=== PATIENT | female | born 1935 | race Caucasian/White ===

== ENCOUNTER 2017-01-23 23:19 | Observation (INO) ==
--- NOTE | 2017-01-23 23:56 | Emergency Department Note ---
Disposition Clinical Impression: Pulmonary edema, Chronic atrial fibrillation, Type 2 diabetes mellitus, Morbid obesity with BMI of 45.0-49.9, adult Disposition: Admitted As Inpatient Condition: Fair Time of Disposition: 00:31 ([facility] Obsv) SOB HPI - General Chief Complaint: ED Shortness of Breath/Dyspnea Stated Complaint: Dyspnea, worse with exertion onset 2 hours Time Seen by Provider: 01/23/17 23:35 Source: patient, EMS Mode of arrival: EMS Limitations: no limitations Nursing Notes Reviewed: Yes Vital Signs Reviewed: Yes - History of Present Illness 81-year-old to the emergency room is having increasing shortness of breath this evening denies any blurred vision double vision patient denies any fevers chills lightheadedness dizziness patient states the denies any chest pain chest pressure as distally with activity desists exertion she denies diarrhea melena hematochezia or hematemesis numbness tingling or weakness or weight loss Pt Subjective Complaint: shortness of breath Onset (ago): hour(s) (4) Context: other (History of similar episodes) Severity: severe Consistency/Duration: constant Improves with: oxygen, rest, bronchodilators Worsens with: exertion, movement Known history of: COPD, congestive heart failure, diabetes Associated symptoms: Reports: cough, wheezing, orthopnea, nausea/vomiting. Denies: sputum production, lower extremity pain, polyuria, polydipsia, parasthesias, palpitations, hemoptysis, diaphoresis, syncope, abdominal pain, sense of impending doom Treatment prior to arrival: oxygen Cough present: No Sputum production: No - Related Data Home oxygen amount: 2 liters Home Medications Medication Instructions Recorded Confirmed Acetaminophen [Tylenol] 650 mg PO Q8H PRN 12/03/15 01/24/17 Albuterol Sulfate [Proair Hfa] 2 puff IH Q8HR PRN 12/03/15 01/24/17 Aspirin 81 mg PO DAILY 12/03/15 01/24/17 Bimatoprost [Lumigan] 2.5 ml OP HS 12/03/15 01/24/17 Calcium Carbonate/Vitamin D3 1 each PO DAILY 12/03/15 01/24/17 [Oyster Shell Calcium-Vit D Tab] EPINEPHrine [Epipen JR] 0.3 mg SQ DAILY PRN 12/03/15 01/24/17 Fluticasone Propionate [Flovent 50 mcg IH BID 12/03/15 01/24/17 Diskus] Furosemide [Lasix] 40 mg PO BID 12/03/15 01/24/17 Insulin ASPART [Novolog Flexpen] 15 unit SQ TID 12/03/15 01/24/17 Insulin Glargine,Hum.rec.anlog 25 unit SQ 2200 12/03/15 01/24/17 [Lantus Solostar] Levothyroxine [Synthroid] 300 mcg PO DAILY 12/03/15 01/24/17 Nitroglycerin [Nitrostat] 0.4 mg SL Q5-10MIN PRN 12/03/15 01/24/17 Potassium Chloride 10 meq PO DAILY 12/03/15 01/24/17 Ranitidine HCl [Zantac] 300 mg PO DAILY 12/03/15 01/24/17 Rosuvastatin Calcium [Crestor] 5 mg PO DAILY 12/03/15 10/29/16 Warfarin [Coumadin] 5 mg PO TUSA 12/03/15 01/24/17 Celecoxib [Celebrex] 100 mg PO DAILY 02/29/16 01/24/17 Diltiazem HCl [Diltiazem 24Hr Cd] 240 mg PO BID 10/29/16 01/24/17 Ipratropium/Albuterol Neb [Duoneb] 3 ml IH Q6HR PRN 10/29/16 01/24/17 Metoprolol [Lopressor] 25 mg PO DAILY 10/29/16 01/24/17 Spironolactone [Aldactone] 25 mg PO 1200 10/29/16 01/24/17 Warfarin [Coumadin] 2.5 mg PO SUMOWETHFR 10/29/16 01/24/17 Previous Rx's Medication Instructions Recorded Digoxin [Lanoxin] 0.125 mg PO QOD #30 tablet 12/08/15 Allergies Allergy/AdvReac Type Severity Reaction Status Date / Time clindamycin Allergy Hives Verified 01/24/17 00:29 doxycycline Allergy Hives Verified 01/24/17 00:29 Penicillins [PCN] Allergy Hives Verified 01/24/17 00:29 pravastatin Allergy Nausea Verified 01/24/17 00:29 simvastatin Allergy Nausea Verified 01/24/17 00:29 sulfamethoxazole Allergy Rash Verified 01/24/17 00:29 [From Bactrim] trimethoprim [From Bactrim] Allergy Rash Verified 01/24/17 00:29 gabapentin AdvReac Drowsy Verified 01/24/17 00:29 lovastatin AdvReac Nausea Verified 01/24/17 00:29 All systems ED: reviewed and negative except as stated. Review of Systems: As Per HPI Constitutional: Reports: weakness, weight change (Gain). Denies: fever, chills Eyes: Denies: eye pain, eye discharge ENT ED: Denies: ear pain Cardiovascular: Reports: dyspnea on exertion, orthopnea. Denies: chest pain, palpitations, syncope Respiratory: Denies: cough, dyspnea, wheezes Gastrointestinal: Denies: abdominal pain, nausea, vomiting Genitourinary: Denies: urgency, dysuria, frequency Musculoskeletal: Denies: back pain, neck pain Integumentary: Denies: rash, abrasion Neurological: Reports: weakness. Denies: headache Psychiatric: Denies: anxiety, depression Endocrine: Denies: fatigue Hematological/Lymphatic: Denies: easy bleeding Allergic/Immunologic: Denies: facial swelling Past Medical History - Past Medical History Attestation: Yes The following information was validated with the patient. Source: patient, old records reviewed, obtained from family, nursing notes reviewed Medical history: Reports: arthritis, atrial fibrillation, cancer, CHF, COPD, diabetes, GERD, glaucoma, hyperlipidemia, hypertension, malignancy, osteoporosis , thyroid disease, valvular heart disease, other Surgical history: Reports: cancer surgery, cataract, cholecystectomy, hysterectomy, orthopedic, other, pacemaker/AICD, sinus surgery, BELLA/BSO, other Psychiatric history: Reports: no psych history TRANSVERSE ABDOMINAL MUSCLE SURGEON history: Reports: no TRANSVERSE ABDOMINAL MUSCLE SURGEON history - Social History Smoking Status: Never smoker Smokeless Tobacco Status: No Alcohol use: Reports: none Drug use: Reports: none Physical Exam - General Limitations: no limitations General appearance: alert, in no apparent distress, anxious, obese - Head Head exam: atraumatic, normocephalic, normal inspection - Eye Eye exam: Present: normal appearance, PERRL, EOMI - ENT ENT exam: normal exam, normal oropharynx, mucous membranes moist, normal external ear exam - Neck Neck exam: Present: normal inspection, full ROM, trachea midline - Chest Chest inspection: Present: normal inspection, symmetric chest wall rise - Respiratory Respiratory exam: Present: normal lung sounds bilaterally - Cardiovascular Cardiovascular exam: Present: regular rate, normal rhythm, normal heart sounds - Abdominal Exam Abdominal exam: Present: soft, Non-Tender, normal bowel sounds. Absent: mass, pulsatile mass - Expanded Upper Extremity Exam Shoulder exam: Present: normal inspection, full ROM Arm exam: Present: normal inspection, full ROM Elbow exam: Present: normal inspection, full ROM Forearm/Wrist exam: Present: normal inspection, full ROM Hand exam: Present: normal inspection, full ROM Vascular exam: Normal: capillary refill, radial pulse - Expanded Lower Extremity Exam Hip/Pelvis exam: Present: normal inspection, full ROM Upper leg exam: Present: normal inspection, full ROM, swelling (Perry bilateral ) Knee exam: Present: normal inspection, full ROM, swelling Lower leg exam: Present: normal inspection, full ROM, swelling. Absent: Homans ' sign Ankle exam: Present: normal inspection, full ROM, swelling Foot/toe exam: Present: normal inspection, full ROM, swelling Neurovascular/Tendon exam: Present: normal capillary refill, normal fine/light touch. Absent: motor deficit, sensory deficit, tendon deficit Gait: not tested/not observed - Back Exam Back exam: Present: normal inspection, full ROM. Absent: muscle spasm - Neurological Exam Neurological exam: Present: alert, oriented X3, CN II-XII intact - Psychiatric Psychiatric exam: Present: normal affect, normal mood - Skin Skin exam: Present: warm, dry, intact, normal color Course Course Narrative: Patient is seen and examined she is noted to be shortness of breath but she has no wheezing no rales no rhonchi noted patient was observed resting comfortably IV established awaiting chest x-ray and laboratory results Vital Signs Temperature 98.0 F 01/23/17 23:25 Pulse Rate 82 01/23/17 23:25 Respiratory Rate 18 01/23/17 23:25 Blood Pressure 131/62 01/23/17 23:25 O2 Sat by Pulse Oximetry 94 01/23/17 23:25 Temperature 97.6 F 01/24/17 02:10 Pulse Rate 78 01/24/17 02:10 Respiratory Rate 18 01/24/17 02:10 Blood Pressure 134/67 01/24/17 02:10 O2 Sat by Pulse Oximetry 91 01/24/17 02:10 Oxygen Delivery Oxygen Delivery Nasal Cannula Shortness of Breath/Dyspnea - Differential Diagnosis Likely: acute exacerbation of chronic obstructive airways disease, congestive heart failure - Medical Records Medical records reviewed: Yes I reviewed the patient's medical records. - Lab Data Lab results reviewed: Yes I reviewed the patient's lab results. Result diagrams: 01/23/17 23:48 01/23/17 23:48 Lab Results 01/23/17 01/23/17 01/23/17 Range/Units 23:48 23:48 23:48 WBC 9.1 (4.3-11.1) K/mcL RBC 3.42 L (3.82-4.97) M/mcL Hgb 11.3 L (11.5-15.4) g/dL Hct 35.9 (35.3-44.9) % MCV 105.0 H (83.0-100.0) fL MCH 33.0 (28.0-33.3) pg MCHC 31.5 L (31.6-35.5) g/dL RDW 15.4 H (11.5-14.5) % Plt Count 283 (140-400) K/mcL MPV 9.2 L (9.4-12.4) fL Immature Gran % 0.4 (0-4) % Seg Neutrophils % 68.3 % Lymphocytes % 18.7 % Monocytes % 6.7 % Eosinophils % 4.7 % Basophils % 1.2 % Neutrophils # 6.2 (1.6-8.9) K/mcL Lymphocytes # 1.7 (0.6-4.6) K/mcL Monocytes # 0.6 (0.0-1.3) K/mcL Eosinophils # 0.4 (0.0-0.6) K/mcL Basophils # 0.1 (0.0-0.2) K/mcL PT 37.6 H (9.4-12.1) Seconds INR 3.4 APTT 41.7 H (26.0-36.0) Seconds Sodium 140 (136-145) mEq/L Potassium 5.0 H (3.5-4.5) mEq/L Chloride 100 (98-109) mEq/L Carbon Dioxide 25 (19-29) mEq/L BUN 15 (7-20) mg/dL Creatinine 1.02 (0.57-1.11) mg/dL Est GFR ( Amer) > 60 (> 60) Est GFR (Non-Af Amer) 52 L (> 60) BUN/Creatinine Ratio 15 (6-26) Glucose 172 H (70-99) mg/dL Calculated Osmolality 295 (280-300) Calcium 8.9 (8.6-10.8) mg/dL Troponin I (0-0.03) ng/mL B-Natriuretic Peptide (0-100) pg/mL Digoxin (0.8-2.0) ng/mL 01/23/17 01/23/17 01/23/17 Range/Units 23:48 23:48 23:48 WBC (4.3-11.1) K/mcL RBC (3.82-4.97) M/mcL Hgb (11.5-15.4) g/dL Hct (35.3-44.9) % MCV (83.0-100.0) fL MCH (28.0-33.3) pg MCHC (31.6-35.5) g/dL RDW (11.5-14.5) % Plt Count (140-400) K/mcL MPV (9.4-12.4) fL Immature Gran % (0-4) % Seg Neutrophils % % Lymphocytes % % Monocytes % % Eosinophils % % Basophils % % Neutrophils # (1.6-8.9) K/mcL Lymphocytes # (0.6-4.6) K/mcL Monocytes # (0.0-1.3) K/mcL Eosinophils # (0.0-0.6) K/mcL Basophils # (0.0-0.2) K/mcL PT (9.4-12.1) Seconds INR APTT (26.0-36.0) Seconds Sodium (136-145) mEq/L Potassium (3.5-4.5) mEq/L Chloride (98-109) mEq/L Carbon Dioxide (19-29) mEq/L BUN (7-20) mg/dL Creatinine (0.57-1.11) mg/dL Est GFR ( Amer) (> 60) Est GFR (Non-Af Amer) (> 60) BUN/Creatinine Ratio (6-26) Glucose (70-99) mg/dL Calculated Osmolality (280-300) Calcium (8.6-10.8) mg/dL Troponin I 0.03 (0-0.03) ng/mL B-Natriuretic Peptide 125 H (0-100) pg/mL Digoxin 0.4 L (0.8-2.0) ng/mL - Radiology Data Radiology results reviewed: Yes I reviewed the patient's radiology results. - EKG Data EKG attestation: Yes I reviewed and interpreted this EKG. EKG results narrative: Electronically paced rhythm rate 68 QRS 153 QT 436 axis -66 Critical Care Time Critical Care Time: No
[2017-01-23 23:57] LABS: Basophils # 0.1 K/mcL (0.0-0.2); Basophils % 1.2 %; Eosinophils # 0.4 K/mcL (0.0-0.6); Eosinophils % 4.7 %; Hematocrit 35.9 % (35.3-44.9); Hemoglobin 11.3 g/dL (11.5-15.4); Immature Granulocytes % 0.4 % (0-4); Lymphocytes # 1.7 K/mcL (0.6-4.6); Lymphocytes % 18.7 %; Mean Corpuscular HGB Conc 31.5 g/dL (31.6-35.5); Mean Platelet Volume 9.2 fL (9.4-12.4); Monocytes # 0.6 K/mcL (0.0-1.3); Monocytes % 6.7 %; Neutrophils # 6.2 K/mcL (1.6-8.9); Platelet Count 283 K/mcL (140-400); Red Blood Count 3.42 M/mcL (3.82-4.97); Red Cell Distribution Width 15.4 % (11.5-14.5); Segmented Neutrophils % 68.3 %
[2017-01-24 00:05] LABS: INR 3.4; Prothrombin Time 37.6 Seconds (9.4-12.1)
[2017-01-24 00:08] LABS: Activated Partial Thrombo Time 41.7 Seconds (26.0-36.0)
[2017-01-24] MEDS ORDERED: Bumetanide 1 MG/4 ML VIAL IVP ONE (00:11)
[2017-01-24 00:15] LABS: BUN/Creatinine Ratio 15 (6-26); Blood Urea Nitrogen 15 mg/dL (7-20); Calcium 8.9 mg/dL (8.6-10.8); Carbon Dioxide 25 mEq/L (19-29); Chloride 100 mEq/L (98-109); Glucose 172 mg/dL (70-99); Osmolality,Calculated 295 (280-300); Sodium 140 mEq/L (136-145); eGFR For African Americans > 60 (> 60); eGFR For Non-African Americans 52 (> 60)
[2017-01-24] MEDS ORDERED: *HR* Digoxin 0.125 MG TABLET PO SCH ×3 (01:29→09:00)
[2017-01-24] MEDS ORDERED: Naloxone 0.4 MG/ML INJ IVP PRN (01:29)
[2017-01-24] MEDS ORDERED: Nitroglycerin 0.4 MG TAB.SUBL SL PRN (01:29)
[2017-01-24] MEDS ORDERED: Dextrose Gel 15 GM PO PRN ×2 (01:29)
[2017-01-24] MEDS ORDERED: D5% in Water 1,000 ML IVC PRN (01:29)
[2017-01-24] MEDS ORDERED: Ondansetron ODT 4 MG TAB.RAPDIS SL PRN (01:29)
[2017-01-24] MEDS ORDERED: Ipratropium/Albuterol Neb 3 ML IH PRN (01:29)
[2017-01-24] MEDS ORDERED: *HR* Dextrose 50 % in Water (Syg) 50 ML SYRINGE IVP PRN (01:29)
[2017-01-24] MEDS: Insulin LISPRO 300 UNITS/3 ML VIAL SQ SCH ×3 (07:51→16:45)
[2017-01-24] MEDS ORDERED: Bumetanide 1 MG/4 ML VIAL IVP SCH (08:00)
[2017-01-24] MEDS ORDERED: Celecoxib 100 MG CAPSULE PO SCH (09:00)
[2017-01-24] MEDS ORDERED: NON-FORMULARY MEDICATION 1 EACH EACH (Insulin Aspart [Novolog Flexpen] 15 UNIT) SQ SCH (09:00)
[2017-01-24] MEDS: Diltiazem CD (24hr) 240 MG CAPSULE PO SCH ×2 (10:09→20:59)
[2017-01-24] MEDS: Furosemide 40 MG TABLET PO SCH ×2 (10:09→16:13)
[2017-01-24] MEDS: Famotidine 20 MG TABLET PO SCH (10:09)
[2017-01-24] MEDS: Aspirin 81 MG TAB.CHEW PO SCH (10:09)
[2017-01-24] MEDS: CALCIUM CARBONATE PO SCH (10:23)
[2017-01-24] MEDS: VITAMIN D3 PO SCH (10:23)
[2017-01-24] MEDS: Beclomethasone 80mcg MDI IH SCH ×2 (10:30→21:25)
[2017-01-24] MEDS: Acetaminophen 325 MG TABLET PO PRN ×2 (11:49→21:32)
[2017-01-24] MEDS ORDERED: Spironolactone 25 MG TABLET PO SCH (12:00)
--- NOTE | 2017-01-24 14:57 | Internal Med History&Physical ---
Date of Encounter: 01/24/17 Time of Encounter: 14:30 Assessment and Plan (1) Diastolic CHF, chronic Current visit: No Status: Chronic She has been started on higher dose Lasix. Aldactone will be continued along with Lopressor and Lanoxin. (2) Chronic atrial fibrillation Current visit: Yes Status: Chronic Continue Coumadin, Cardizem, Lanoxin, and Lopressor. (3) Macrocytic anemia Current visit: Yes Status: Acute TSH was normal at 3.306 in 08/13/2016. Will order anemia testing in a.m. Suspect likely due to chronic liver disease. (4) CKD (chronic kidney disease) stage 3, GFR 30-59 ml/min Current visit: Yes Status: Acute (5) Hyperkalemia Current visit: Yes Status: Acute Will discontinue supplemental potassium. (6) Hyperuricemia Current visit: Yes Status: Acute Uric acid level was 7.3 on 07/31/2015. We will recheck in a.m. (7) Low vitamin D level Current visit: Yes Status: Acute Vitamin D level was 11 on 08/13/2016. We will recheck in a.m. Internal Medicine - H&P: HPI Chief complaint: Dyspnea Admitted From: Home Plans for Post Hospital Care: Home History of present illness: Ms. Nowak is a 81 year old female who came to emergency room stating she had onset of dyspnea a few hours earlier while at leisure at home. She denies chest pain or cough associated. She took a nebulizer treatment without improvement. The squad was called and she was brought to emergency room. She was evaluated and admitted to [facility] floor for ongoing care needs. She states her dyspnea has improved and she feels back to her baseline now. She claims a diagnosis of heart failure. Echocardiogram done October 2015 shows LVEF of 55% with indeterminate diastolic function due to atrial fibrillation. There was reported moderately dilated atria without measurements recorded. There was [id number] TR. She denies hypertension IA DVT or pulmonary embolus. She denies stress test or heart cath being done. She had a diagnosis of SSS and had pacemaker placement October 2014. Past Med Surg Social Fam HX - Past Medical History Medical history: arthritis, atrial fibrillation, cancer, CHF, COPD, diabetes, GERD, glaucoma, hyperlipidemia, hypertension, malignancy, osteoporosis, thyroid disease, valvular heart disease, other Psychiatric history: no psych history - Past Surgical History Surgical History: cancer surgery, cataract, cholecystectomy, hysterectomy, orthopedic, other, pacemaker/AICD, sinus surgery, BELLA/BSO, other - Social History Smoking Status: Never smoker Smokeless Tobacco Status: No Alcohol use: none Drug use: none - Family History Mother Hx Family Cardiac Disorders: Yes Hx Family Respiratory Disorders: Yes Internal Medicine - H&P: Meds Acetaminophen [Tylenol] 650 mg PO Q8H PRN 12/03/15 [History] Albuterol Sulfate [Proair Hfa] 2 puff IH Q8HR PRN 12/03/15 [History] Aspirin 81 mg PO DAILY 12/03/15 [History] Bimatoprost [Lumigan] 2.5 ml OP HS 12/03/15 [History] Calcium Carbonate/Vitamin D3 [Oyster Shell Calcium-Vit D Tab] 1 each PO DAILY [History] EPINEPHrine [Epipen JR] 0.3 mg SQ DAILY PRN 12/03/15 [History] Fluticasone Propionate [Flovent Diskus] 50 mcg IH BID 12/03/15 [History] Furosemide [Lasix] 40 mg PO BID 12/03/15 [History] Insulin ASPART [Novolog Flexpen] 15 unit SQ TID 12/03/15 [History] Insulin Glargine,Hum.rec.anlog [Lantus Solostar] 25 unit SQ 2200 12/03/15 [ History] Levothyroxine [Synthroid] 300 mcg PO DAILY 12/03/15 [History] Nitroglycerin [Nitrostat] 0.4 mg SL Q5-10MIN PRN 12/03/15 [History] Potassium Chloride 10 meq PO DAILY 12/03/15 [History] Ranitidine HCl [Zantac] 300 mg PO DAILY 12/03/15 [History] Warfarin [Coumadin] 5 mg PO TUSA 12/03/15 [History] Digoxin [Lanoxin] 0.125 mg PO QOD #30 tablet 12/08/15 [Rx] Celecoxib [Celebrex] 100 mg PO DAILY 02/29/16 [History] Diltiazem HCl [Diltiazem 24Hr Cd] 240 mg PO BID 10/29/16 [History] Ipratropium/Albuterol Neb [Duoneb] 3 ml IH Q6HR PRN 10/29/16 [History] Metoprolol [Lopressor] 25 mg PO DAILY 10/29/16 [History] Spironolactone [Aldactone] 25 mg PO 1200 10/29/16 [History] Warfarin [Coumadin] 2.5 mg PO SUMOWETHFR 10/29/16 [History] 3 Allergy/AdvReac Type Severity Reaction Status Date / Time clindamycin Allergy Hives Verified 01/24/17 00:29 doxycycline Allergy Hives Verified 01/24/17 00:29 Penicillins [PCN] Allergy Hives Verified 01/24/17 00:29 pravastatin Allergy Nausea Verified 01/24/17 00:29 simvastatin Allergy Nausea Verified 01/24/17 00:29 sulfamethoxazole Allergy Rash Verified 01/24/17 00:29 [From Bactrim] trimethoprim [From Bactrim] Allergy Rash Verified 01/24/17 00:29 gabapentin AdvReac Drowsy Verified 01/24/17 00:29 lovastatin AdvReac Nausea Verified 01/24/17 00:29 All Systems PM: A 10-system review of systems was performed and is negative for pertinent findings except as documented above in the HPI. Review of systems: Gen.: Her weight has been stable the past few months Cardiovascular: As per history of present illness Respiratory: She is a lifelong nonsmoker but states she has asthma. She has been diagnosed with hypoxemia and uses oxygen 15/11. She has had negative ZOE workup. GI: She is a lifelong nondrinker but has been diagnosed with cirrhosis. She has had cholecystectomy. She has occasional GERD symptoms. She denies disorders of exocrine pancreas. : She had uterine cancer with curative BELLA/BSO several years ago. She was unaware she has chronic kidney disease stage 2-3 from review of past labs. Neurologic: She denies large distribution strokes or seizures. Endocrine: She was diagnosed DM 2 approximately 2011. She has hypothyroidism and history of hyperlipidemia but was taken off statin drugs recently. Hematology/oncology: She had uterine cancer with curative surgery as per above several years ago. She has anemia but denies other internal malignancies. Psychiatric: She denies anxiety depression or other mental health issues. [place] skeletal: She has DJD but denies gout or other bone joint or muscle disorders. - Constitutional Vitals: Temp Pulse Resp BP Pulse Ox 98.0 F 84 18 107/57 93 01/24/17 10:39 01/24/17 10:39 01/24/17 10:39 01/24/17 10:39 01/24/17 10:39 Exam: Gen.: She is a well-developed overweight female sitting in a chair who appears in no acute distress. HEENT: Head is atraumatic and normocephalic. Eyes: EOMI. There is no scleral icterus. Mouth: Mucosa is moist. Neck: Supple and nontender. There is no thyromegaly or adenopathy noted. Heart: Regular (pacer) without murmurs or gallops. Lungs: No wheezes or crackles are heard. Abdomen: Soft and nontender. No masses or guarding are noted. Extremities: She has trace edema of the dorsum of the feet and lower anterior shins bilaterally. Dorsalis pedis and posttibial pulses are not palpable. Her feet are warm to touch. Neurologic: Mental status: She is talkative and a good historian. Cranial nerves: Smile is symmetric. Forehead wrinkles bilaterally. Tongue protrudes midline. EOMI. Motor: There is no pronator drift. Cerebellar: Finger to nose is intact bilaterally. Skin: Warm and dry Internal Med - H&P Results - Labs CBC & Chem 7: 01/23/17 23:48 01/23/17 23:48
[2017-01-24] MEDS: Isosorbide MONOnitrate (24 HR) 30 MG TAB.ER.24H PO SCH (16:14)
--- NOTE | 2017-01-24 17:05 | Electrocardiograph Report ---
[address] [address] Test Date: 2017-01-23 Pat Name: Nika Nowak Department: [id number] Room: [facility] Gender: F Construction Administrator: Kolby : 1935 Requested By: Farzaneh Mariscal Order Number: [id number] Reading MD: Tonya Aguirre Measurements Intervals [place] Rate: 68 P: SD: 0 QRS: -66 QRSD: 153 T: 110 QT: 436 QTc: 454 Interpretive Statements ELECTRONIC VENTRICULAR PACEMAKER ABNORMAL RHYTHM ECG Electronically Signed On 01-24-2017 17:03:29 EDT by Tonya Aguirre
[2017-01-24] MEDS ORDERED: Insulin DETEMIR 100 UNIT/ML X5UNITS SQ SCH (21:00)
[2017-01-24] MEDS ORDERED: BIMATOPROST OP SCH (21:00)
[2017-01-25 06:10] LABS: Basophils # 0.1 K/mcL (0.0-0.2); Basophils % 1.4 %; Eosinophils # 0.6 K/mcL (0.0-0.6); Eosinophils % 7.5 %; Hematocrit 33.1 % (35.3-44.9); Hemoglobin 10.8 g/dL (11.5-15.4); Immature Granulocytes % 0.8 % (0-4); Lymphocytes # 1.7 K/mcL (0.6-4.6); Mean Corpuscular HGB Conc 32.6 g/dL (31.6-35.5); Mean Corpuscular Hemoglobin 33.5 pg (28.0-33.3); Mean Corpuscular Volume 102.8 fL (83.0-100.0); Mean Platelet Volume 9.3 fL (9.4-12.4); Monocytes # 0.6 K/mcL (0.0-1.3); Monocytes % 7.2 %; Neutrophils # 4.7 K/mcL (1.6-8.9); Platelet Count 267 K/mcL (140-400); Red Blood Count 3.22 M/mcL (3.82-4.97); Red Cell Distribution Width 15.2 % (11.5-14.5); Segmented Neutrophils % 61.1 %
[2017-01-25 06:25] LABS: BUN/Creatinine Ratio 15 (6-26); Blood Urea Nitrogen 13 mg/dL (7-20); Calcium 8.9 mg/dL (8.6-10.8); Carbon Dioxide 27 mEq/L (19-29); Chloride 101 mEq/L (98-109); Glucose 133 mg/dL (70-99); Osmolality,Calculated 296 (280-300); Potassium 3.7 mEq/L (3.5-4.5); Sodium 142 mEq/L (136-145); eGFR For African Americans > 60 (> 60); eGFR For Non-African Americans > 60 (> 60)
[2017-01-25 06:26] VITALS: BP 179/61
[2017-01-25 06:27] LABS: Magnesium 2.3 mg/dL (1.6-2.6); Uric Acid 7.9 mg/dL (2.6-6.0)
[2017-01-25] MEDS: Diltiazem CD (24hr) 240 MG CAPSULE PO SCH (07:33)
[2017-01-25] MEDS: Acetaminophen 325 MG TABLET PO PRN (07:33)
[2017-01-25] MEDS: Isosorbide MONOnitrate (24 HR) 30 MG TAB.ER.24H PO SCH (07:33)
[2017-01-25] MEDS: Famotidine 20 MG TABLET PO SCH (07:33)
[2017-01-25] MEDS: Furosemide 40 MG TABLET PO SCH (07:33)
[2017-01-25] MEDS: Insulin LISPRO 300 UNITS/3 ML VIAL SQ SCH (07:34)
[2017-01-25] MEDS: Aspirin 81 MG TAB.CHEW PO SCH (07:34)
[2017-01-25] MEDS: CALCIUM CARBONATE PO SCH (08:11)
[2017-01-25] MEDS: VITAMIN D3 PO SCH (08:11)
--- NOTE | 2017-01-25 09:53 | Discharge Summary ---
Date of Encounter: 01/25/17 Time of Encounter: 09:45 - Discharge Diagnosis (1) Diastolic CHF, chronic Priority: Primary Status: Chronic (2) Chronic atrial fibrillation Priority: Secondary Status: Chronic (3) Macrocytic anemia Priority: Secondary Status: Acute (4) CKD (chronic kidney disease) stage 3, GFR 30-59 ml/min Priority: Secondary Status: Acute (5) Hyperkalemia Priority: Secondary Status: Acute (6) Hyperuricemia Priority: Secondary Status: Acute (7) Low vitamin D level Priority: Secondary Status: Acute - Discharge Medications Prescriptions: Isosorbide MONOnitrate (24 HR) [Imdur] 30 mg PO DAILY #30 tab.er.24h Home Medications: Acetaminophen [Tylenol] 650 mg PO Q8H PRN 12/03/15 [History] Albuterol Sulfate [Proair Hfa] 2 puff IH Q8HR PRN 12/03/15 [History] Aspirin 81 mg PO DAILY 12/03/15 [History] Bimatoprost [Lumigan] 2.5 ml OP HS 12/03/15 [History] Calcium Carbonate/Vitamin D3 [Oyster Shell Calcium-Vit D Tab] 1 each PO DAILY [History] EPINEPHrine [Epipen JR] 0.3 mg SQ DAILY PRN 12/03/15 [History] Fluticasone Propionate [Flovent Diskus] 50 mcg IH BID 12/03/15 [History] Furosemide [Lasix] 40 mg PO BID 12/03/15 [History] Insulin ASPART [Novolog Flexpen] 15 unit SQ TID 12/03/15 [History] Insulin Glargine,Hum.rec.anlog [Lantus Solostar] 25 unit SQ 2200 12/03/15 [ History] Levothyroxine [Synthroid] 300 mcg PO DAILY 12/03/15 [History] Nitroglycerin [Nitrostat] 0.4 mg SL Q5-10MIN PRN 12/03/15 [History] Potassium Chloride 10 meq PO DAILY 12/03/15 [History] Ranitidine HCl [Zantac] 300 mg PO DAILY 12/03/15 [History] Warfarin [Coumadin] 5 mg PO TUSA 12/03/15 [History] Digoxin [Lanoxin] 0.125 mg PO QOD #30 tablet 08/15/16 [Rx] Diltiazem HCl [Diltiazem 24Hr Cd] 240 mg PO BID 10/29/16 [History] Ipratropium/Albuterol Neb [Duoneb] 3 ml IH Q6HR PRN 10/29/16 [History] Metoprolol [Lopressor] 25 mg PO DAILY 10/29/16 [History] Spironolactone [Aldactone] 25 mg PO 1200 10/29/16 [History] Warfarin [Coumadin] 2.5 mg PO SUMOWETHFR 10/29/16 [History] Isosorbide MONOnitrate (24 HR) [Imdur] 30 mg PO DAILY #30 tab.er.24h 01/25/17 [ Rx] Allergies/Adverse Reactions: 3 Allergy/AdvReac Type Severity Reaction Status Date / Time clindamycin Allergy Hives Verified 01/24/17 00:29 doxycycline Allergy Hives Verified 01/24/17 00:29 Penicillins [PCN] Allergy Hives Verified 01/24/17 00:29 pravastatin Allergy Nausea Verified 01/24/17 00:29 simvastatin Allergy Nausea Verified 01/24/17 00:29 sulfamethoxazole Allergy Rash Verified 01/24/17 00:29 [From Bactrim] trimethoprim [From Bactrim] Allergy Rash Verified 01/24/17 00:29 gabapentin AdvReac Drowsy Verified 01/24/17 00:29 lovastatin AdvReac Nausea Verified 01/24/17 00:29 Date of admission: 01/24/17 00:53 Primary care physician: Cholo Hwang DO - Patient Status Disposition: Home, Self-Care Condition: Fair Functional capacity at discharge: uses cane/walker Overall status at discharge: patient is progressing back to baseline - Discharge Instructions Follow Up With: Cholo Hwang DO [Primary Care Provider] - 1 week - Diet and Activity Activity: resume usual activities as tolerated, wear oxygen at night Diet: advance to your usual diet Hospital course: Ms. Nowak is a 81 year old female who came to emergency room stating she had onset of dyspnea a few hours earlier while at leisure at home. She denies chest pain or cough associated. She took a nebulizer treatment without improvement. The squad was called and she was brought to emergency room. She was evaluated and admitted to [facility] for ongoing care needs. Initial orders were written by the emergency room physician. I saw her on January 24 and performed a history and physical. She was given Lasix 80 mg twice a day. Aldactone, Lopressor, Lanoxin were continued. I started her on isosorbide. By the following day she felt back to her baseline. She wished to be discharged home which I felt was reasonable. She will resume previous dose Lasix for now but her PCP/seo marketing specialist can increase the dose as needed should symptoms recur. She had occasional sensation of RVR. I told her her PCP/seo marketing specialist could increase her Lanoxin dose if symptoms persist since her level returned low at 0.4. Celebrex was discontinued and IV fluids given. Her renal function improved with the BUN and creatinine being 13 and 0.9 respectively on the day of discharge with estimated GFR greater than 60. She will remain off Celebrex at discharge and use Tylenol for pain. Uric acid returned slightly elevated at 7.9. She did not have symptoms of gout so no medication was prescribed. Anemia testing and vitamin D level were ordered with results pending at time of discharge. She will be discharged home and follow with Dr. Hwang within 1 week. - Time Spent with Patient Total time spent providing and/or coordinating discharge services: - Constitutional Vitals: Temp Pulse Resp BP Pulse Ox 97.6 F 78 17 179/61 93 01/25/17 06:24 01/25/17 06:24 01/25/17 06:24 01/25/17 06:24 01/25/17 06:24
[2017-01-25] MEDS ORDERED: *HR* Warfarin 5 MG TABLET PO SCH (18:00)
[2017-01-25] MEDS ORDERED: Latanoprost 2.5 ML BOTTLE BOTH EYES SCH (21:00)
[2017-01-25] MEDS ORDERED: Insulin DETEMIR 100 UNIT/ML X5UNITS SQ SCH (21:00)
[2017-01-26] MEDS ORDERED: *HR* Warfarin 5 MG TABLET PO SCH (18:00)
== END 2017-01-25 10:05 | disposition home or self-care (01) ==
LOC: INPPIK 23:19 → EMEROOPIK 23:19 → INPPIK 01-24 01:25
PROVIDERS: ADMIT Internal Medicine; ATTEND Internal Medicine

== ENCOUNTER 2018-03-19 15:25 | Observation (INO) ==
--- NOTE | 2018-03-19 15:53 | Emergency Department Note ---
Disposition Clinical Impression: Acute exacerbation of chronic obstructive airways disease Congestive heart failure Qualifiers: Heart failure type: unspecified Heart failure chronicity: acute on chronic Qualified Code(s): I50.9 - Heart failure, unspecified Disposition: Admitted As Inpatient Condition: Fair Referrals: NONE,PCP [Primary Care Provider] - Forms: ED Satisfaction Letter SOB HPI - General Chief Complaint: ED Shortness of Breath/Dyspnea Stated Complaint: shortness of breath, chest pain Time Seen by Provider: 03/19/18 15:40 Source: patient, family Mode of arrival: EMS Limitations: no limitations Nursing Notes Reviewed: Yes Vital Signs Reviewed: Yes - History of Present Illness Agent presents to the ED via EMS complaining of chest pain and shortness of br eath. Symptoms began yesterday evening. Her chest pain is intermittent and sharp but only a 1-2 out of 10 when it occurs. She has no pain at this moment. The pain is generalized however throughout her chest. She reports some shortness of breath that is worse with exertion. He did get better after she did a breathing treatment at home. She is also had intermittent dry cough. She reports chronic rhinorrhea that has not changed. No sore throat or sneezing. Her sister reports that she thinks her legs are more swollen than usual. Patient reports chronic nausea for years but no vomiting or diarrhea. Her sister states her PCP changed her from ranitidine to esomeprazole recently. She reports some subjective fever and chills yesterday evening as well. No urinary symptoms. No rash. No recent travel or sick contacts. Patient did recently have cataract surgery but reports no complications from this. Patient has multiple chronic medical problems including COPD, CHF, diabetes, hypertension, pacemaker and having had a blood clot in her heart years ago. She is on Coumadin for this. She also has remote history of uterine cancer. - Related Data Home Medications Medication Instructions Recorded Confirmed Acetaminophen [Tylenol] 650 mg PO Q8H PRN 12/03/15 03/19/18 Albuterol Sulfate [Proair Hfa] 2 puff IH Q8HR PRN 12/03/15 03/19/18 Aspirin 81 mg PO DAILY 12/03/15 03/19/18 Bimatoprost [Lumigan] 2.5 ml OP HS 12/03/15 03/19/18 Calcium Carbonate/Vitamin D3 1 each PO DAILY 12/03/15 03/19/18 [Oyster Shell Calcium-Vit D Tab] EPINEPHrine [Epipen JR] 0.3 mg SQ DAILY PRN 12/03/15 03/19/18 Fluticasone Propionate [Flovent 50 mcg IH BID 12/03/15 03/19/18 Diskus] Insulin ASPART [Novolog Flexpen] 15 unit SQ TIDWM 12/03/15 03/19/18 Insulin Glargine,Hum.rec.anlog 25 unit SQ HS 12/03/15 03/19/18 [Lantus Solostar] Levothyroxine [Synthroid] 300 mcg PO DAILY 12/03/15 03/19/18 Nitroglycerin [Nitrostat] 0.4 mg SL Q5-10MIN PRN 12/03/15 03/19/18 Potassium Chloride 10 meq PO DAILY 12/03/15 03/19/18 Ranitidine HCl [Zantac] 300 mg PO DAILY 12/03/15 03/19/18 Diltiazem HCl [Diltiazem 24Hr Cd] 240 mg PO BID 10/29/16 03/19/18 Ipratropium/Albuterol Neb [Duoneb] 3 ml IH Q6HR PRN 10/29/16 03/19/18 Spironolactone [Aldactone] 25 mg PO 1200 10/29/16 03/19/18 Cyanocobalamin (Vitamin B-12) 1,000 mcg PO DAILY 06/09/17 03/19/18 [Vitamin B12] Warfarin [Coumadin] 5 mg PO DAILY 06/09/17 03/19/18 Previous Rx's Medication Instructions Recorded Digoxin [Lanoxin] 0.125 mg PO DAILY #30 tablet 06/11/17 Furosemide [Lasix] 80 mg PO BID #0 06/11/17 Isosorbide MONOnitrate [Isosorbide 120 mg PO DAILY #30 tab.er.24h 06/11/17 Mononitrate ER] Loratadine [Claritin] 10 mg PO DAILY PRN #0 06/11/17 Metoprolol [Lopressor] 25 mg PO BID #0 06/11/17 Allergies Allergy/AdvReac Type Severity Reaction Status Date / Time clindamycin Allergy Hives Verified 01/24/17 00:29 doxycycline Allergy Hives Verified 01/24/17 00:29 Penicillins [PCN] Allergy Hives Verified 01/24/17 00:29 pravastatin Allergy Nausea Verified 01/24/17 00:29 simvastatin Allergy Nausea Verified 01/24/17 00:29 [place] Allergy Hives Verified 18 17:57 sulfamethoxazole Allergy Rash Verified 01/24/17 00:29 [From Bactrim] trimethoprim [From Bactrim] Allergy Rash Verified 01/24/17 00:29 gabapentin AdvReac Drowsy Verified 01/24/17 00:29 lovastatin AdvReac Nausea Verified 01/24/17 00:29 Constitutional: Reports: fever (subjective), chills. Denies: weakness, weight change Eyes: Denies: eye pain, eye discharge, vision change ENT ED: Denies: ear pain, throat pain, dental pain, hearing loss, epistaxis, congestion, dysphagia Cardiovascular: Reports: chest pain, dyspnea on exertion. Denies: palpitations, edema, syncope Respiratory: Reports: cough, dyspnea. Denies: wheezes, hemoptysis, stridor, sputum production Gastrointestinal: Reports: nausea (chronic). Denies: abdominal pain, vomiting, diarrhea, constipation, hematemesis, melena, hematochezia Genitourinary: Denies: dysuria, frequency, hematuria, discharge Musculoskeletal: Denies: back pain, neck pain, arthralgia, myalgia Integumentary: Denies: rash, abrasion, lesions Neurological: Denies: headache, weakness, numbness, paresthesias, confusion, abnormal gait, vertigo Psychiatric: Denies: anxiety, depression, suicidal thoughts, homicidal thoughts, auditory hallucinations, visual hallucinations Endocrine: Denies: fatigue Hematological/Lymphatic: Denies: easy bleeding, easy bruising Allergic/Immunologic: Denies: facial swelling, urticaria Past Medical History - Past Medical History Medical history: Reports: atrial fibrillation, cirrhosis, CHF, COPD, diabetes, GERD, hyperlipidemia, hypertension, renal disease, thyroid disease, other Surgical history: Reports: cancer surgery, cataract, cholecystectomy, hysterectomy, orthopedic, other (Right knee arthroscopic surgery.), pacemaker/AICD, sinus surgery (Tonsillectomy adenoidectomy.), BELLA/BSO, other (Bladder repair. Transonic greater taping procedure. Heel spur resections. Hemorrhoidectomy. Dilatation of cervix. Hysteroscopy. Dilatation and curettage.) Psychiatric history: Reports: no psych history LEAD AUDITOR history: Reports: no LEAD AUDITOR history - Social History Smoking Status: Never smoker Smokeless Tobacco Status: No Alcohol use: Reports: none Drug use: Reports: none Physical Exam - General Limitations: no limitations General appearance: alert, in no apparent distress, obese - Head Head exam: atraumatic, normocephalic, normal inspection - Eye Eye exam: Present: normal appearance, PERRL, EOMI - ENT ENT exam: normal exam, normal oropharynx, mucous membranes moist - Neck Neck exam: Present: normal inspection, full ROM, trachea midline - Chest Chest inspection: Present: normal inspection, symmetric chest wall rise. Absent: tenderness - Respiratory Respiratory exam: Absent: respiratory distress - Expanded Respiratory Exam Location: decreased breath sounds: Left, Right, Upper, Lower - Cardiovascular Cardiovascular exam: Present: regular rate, normal rhythm, normal heart sounds - Abdominal Exam Abdominal exam: Present: soft, Non-Tender. Absent: tenderness, distention, guarding, rebound, rigidity - Extremities Exam Extremities exam: Present: normal inspection, full ROM, pedal edema (non- pitting). Absent: tenderness - Back Exam Back exam: Present: normal inspection, full ROM. Absent: tenderness - Neurological Exam Neurological exam: Present: alert, oriented X3 - Psychiatric Psychiatric exam: Present: normal affect, normal mood - Skin Skin exam: Present: warm, dry, intact, normal color Course Course Narrative: Presents to the ED complaining of chest pain and shortness of breath since yesterday evening that increases with exertion and associated with some increased leg swelling. On arrival she is afebrile, nontoxic in appearance and hemodynamically stable. Oxygen saturation is 94% on her home oxygen levels. Lung sounds are slightly diminished and she does have some nonpitting edema concerning for CHF versus COPD exacerbation versus possibility of pneumonia given her symptoms and history. EKG on arrival shows a sinus rhythm with heart rate of 67. No ischemic changes. Will attain chest x-ray and lab work. Will give a breathing treatment and steroids. - Reevaluation(s) Reevaluation #1: Chest x-ray does not show any acute pathology. Laboratory studies show a negative troponin, chronic anemia and slightly elevated BNP. Patient was given a breathing treatment but still does not feel back to baseline. Given her persistent intermittent pain and respiratory symptoms an extensive history of should benefit from admission and further close monitoring and treatment. Patient is in agreement. I spoken to the hospitalist on-call, Dr. Hollis who has agreed to admit the patient. Time: 18:27 Vital Signs Temperature 98.8 F 03/19/18 15:27 Pulse Rate 66 03/19/18 15:27 Respiratory Rate 20 03/19/18 15:27 Blood Pressure 131/68 03/19/18 15:27 O2 Sat by Pulse Oximetry 94 03/19/18 15:27 Temperature 98.8 F 03/19/18 15:27 Pulse Rate 63 03/19/18 17:57 Respiratory Rate 20 03/19/18 17:57 Blood Pressure 123/44 03/19/18 17:57 O2 Sat by Pulse Oximetry 96 03/19/18 17:57 Oxygen Delivery Oxygen Delivery Nasal Cannula Shortness of Breath/Dyspnea - Differential Diagnosis Likely: acute exacerbation of chronic obstructive airways disease, congestive heart failure, pneumonia - Medical Records Medical records reviewed: Yes I reviewed the patient's medical records. - Lab Data Lab results reviewed: Yes I reviewed the patient's lab results. Result diagrams: 03/19/18 16:06 03/19/18 16:06 Lab Results 03/19/18 03/19/18 03/19/18 Range/Units 16:06 16:06 16:06 WBC 11.0 (4.3-11.1) K/mcL RBC 3.57 L (3.82-4.97) M/mcL Hgb 11.3 L (11.5-15.4) g/dL Hct 34.2 L (35.3-44.9) % MCV 95.8 (83.0-100.0) fL MCH 31.7 (28.0-33.3) pg MCHC 33.0 (31.6-35.5) g/dL RDW 13.9 (11.5-14.5) % Plt Count 281 (140-400) K/mcL MPV 9.4 (9.4-12.4) fL Immature Gran % 0.8 (0-4) % Seg Neutrophils % 71.4 % Lymphocytes % 15.4 % Monocytes % 8.9 % Eosinophils % 2.6 % Basophils % 0.9 % Neutrophils # 7.8 (1.6-8.9) K/mcL Lymphocytes # 1.7 (0.6-4.6) K/mcL Monocytes # 1.0 (0.0-1.3) K/mcL Eosinophils # 0.3 (0.0-0.6) K/mcL Basophils # 0.1 (0.0-0.2) K/mcL PT 29.4 H (9.4-12.1) Seconds INR 2.6 Sodium 137 (136-145) mEq/L Potassium 3.3 L (3.5-5.1) mEq/L Chloride 95 L (98-107) mEq/L Carbon Dioxide 30 H (23-29) mEq/L BUN 12 (8-23) mg/dL Creatinine 1.14 (0.60-1.20) mg/dL Est GFR ( Amer) 55 L (> 60) Est GFR (Non-Af Amer) 46 L (> 60) BUN/Creatinine Ratio 11 (6-26) Glucose 113 H (70-105) mg/dL Calculated Osmolality 285 (280-300) Lactic Acid (0.5-2.2) mmol/L Calcium 8.8 (8.6-10.3) mg/dL Troponin I 0.03 (< 0.04) ng/mL B-Natriuretic Peptide (Less than 100) pg/mL 03/19/18 03/19/18 Range/Units 16:06 16:06 WBC (4.3-11.1) K/mcL RBC (3.82-4.97) M/mcL Hgb (11.5-15.4) g/dL Hct (35.3-44.9) % MCV (83.0-100.0) fL MCH (28.0-33.3) pg MCHC (31.6-35.5) g/dL RDW (11.5-14.5) % Plt Count (140-400) K/mcL MPV (9.4-12.4) fL Immature Gran % (0-4) % Seg Neutrophils % % Lymphocytes % % Monocytes % % Eosinophils % % Basophils % % Neutrophils # (1.6-8.9) K/mcL Lymphocytes # (0.6-4.6) K/mcL Monocytes # (0.0-1.3) K/mcL Eosinophils # (0.0-0.6) K/mcL Basophils # (0.0-0.2) K/mcL PT (9.4-12.1) Seconds INR Sodium (136-145) mEq/L Potassium (3.5-5.1) mEq/L Chloride (98-107) mEq/L Carbon Dioxide (23-29) mEq/L BUN (8-23) mg/dL Creatinine (0.60-1.20) mg/dL Est GFR ( Amer) (> 60) Est GFR (Non-Af Amer) (> 60) BUN/Creatinine Ratio (6-26) Glucose (70-105) mg/dL Calculated Osmolality (280-300) Lactic Acid 1.6 (0.5-2.2) mmol/L Calcium (8.6-10.3) mg/dL Troponin I (< 0.04) ng/mL B-Natriuretic Peptide 170 H (Less than 100) pg/mL - Radiology Data Radiology results reviewed: Yes I reviewed the patient's radiology results. ITS Impressions Chest X-Ray 03/19/18 15:52 IMPRESSION: 1. Pulmonary venous hypertension without overt congestive heart failure change. 2. Senescent pulmonary changes. 3. Calcific atherosclerosis aorta. 4. Cardiomegaly. D/ / Cody Alvarenga / Cody Alvarenga Interpreting Provider: Cody Alvarenga - EKG Data EKG attestation: Yes I reviewed and interpreted this EKG. EKG shows normal: Reports: sinus rhythm Rate: Reports: normal [place]/QRS: Reports: normal Heart block present: Reports: 1st Degree Interpretation: Reports: no acute changes, unchanged when compared to prior tracing (date) (06/09/17)
[2018-03-19 16:15] LABS: Basophils # 0.1 K/mcL (0.0-0.2); Basophils % 0.9 %; Eosinophils # 0.3 K/mcL (0.0-0.6); Eosinophils % 2.6 %; Hematocrit 34.2 % (35.3-44.9); Hemoglobin 11.3 g/dL (11.5-15.4); Immature Granulocytes % 0.8 % (0-4); Lymphocytes # 1.7 K/mcL (0.6-4.6); Lymphocytes % 15.4 %; Mean Corpuscular Hemoglobin 31.7 pg (28.0-33.3); Mean Corpuscular Volume 95.8 fL (83.0-100.0); Mean Platelet Volume 9.4 fL (9.4-12.4); Monocytes % 8.9 %; Neutrophils # 7.8 K/mcL (1.6-8.9); Platelet Count 281 K/mcL (140-400); Red Blood Count 3.57 M/mcL (3.82-4.97); Red Cell Distribution Width 13.9 % (11.5-14.5); Segmented Neutrophils % 71.4 %
[2018-03-19 16:22] LABS: INR 2.6; Prothrombin Time 29.4 Seconds (9.4-12.1)
[2018-03-19 16:29] LABS: Calcium 8.8 mg/dL (8.6-10.3); Potassium 3.3 mEq/L (3.5-5.1)
[2018-03-19 16:33] LABS: Troponin I 0.03 ng/mL (< 0.04)
[2018-03-19] MEDS ORDERED: Ipratropium/Albuterol Neb 3 ML IH ONE (17:28)
[2018-03-19] MEDS ORDERED: methylPREDNISolone 125 MG/2 ML VIAL IM STA (17:28)
[2018-03-19] MEDS ORDERED: Furosemide 40 MG/4 ML VIAL IVP ONE (17:29)
[2018-03-19] MEDS ORDERED: methylPREDNISolone 125 MG/2 ML VIAL IVP ONE (17:42)
[2018-03-19] MEDS ORDERED: Naloxone 0.4 MG/ML INJ IVP PRN ×2 (18:10→18:46)
[2018-03-19] MEDS ORDERED: *HR* Dextrose 50 % in Water (Syg) 50 ML SYRINGE IVP PRN ×2 (18:20→18:46)
[2018-03-19] MEDS ORDERED: Dextrose Gel 15 GM/37.5 ML TUBE PO PRN ×4 (18:20→18:46)
[2018-03-19] MEDS ORDERED: D5% in Water 1,000 ML IVC PRN ×2 (18:20→18:46)
[2018-03-19] MEDS ORDERED: Acetaminophen 325 MG TABLET PO PRN (18:46)
[2018-03-19] MEDS ORDERED: Ipratropium/Albuterol Neb 3 ML IH PRN (18:46)
[2018-03-19] MEDS ORDERED: Nitroglycerin 0.4 MG TAB.SUBL SL PRN (18:46)
[2018-03-19] MEDS ORDERED: Loratadine 10 MG TABLET PO PRN (18:46)
[2018-03-19] MEDS ORDERED: *HR* EPINEPHrine 1 MG/ML AMPUL SQ PRN (18:46)
[2018-03-19] MEDS ORDERED: Ondansetron ODT 4 MG TAB.RAPDIS SL STA (19:46)
[2018-03-19] MEDS ORDERED: Ondansetron ODT 4 MG TAB.RAPDIS SL PRN (19:48)
[2018-03-19] MEDS: Insulin LISPRO 300 UNITS/3 ML VIAL SQ SCH (20:10)
[2018-03-19] MEDS: Furosemide 40 MG TABLET PO SCH (20:21)
[2018-03-19] MEDS: Diltiazem CD (24hr) 240 MG CAPSULE PO SCH (20:21)
[2018-03-19] MEDS: Latanoprost 2.5 ML BOTTLE BOTH EYES SCH (20:23)
[2018-03-19] MEDS ORDERED: Insulin DETEMIR 100 UNIT/ML per UNIT SQ ONE (21:00)
[2018-03-19] MEDS ORDERED: Insulin LISPRO 300 UNITS/3 ML VIAL SQ SCH (21:00)
[2018-03-19] MEDS: Beclomethasone 80mcg MDI IH SCH (21:38)
[2018-03-19] MEDS ORDERED: Beclomethasone 80mcg MDI IH SCH (22:00)
[2018-03-20] MEDS ORDERED: Famotidine 20 MG TABLET PO SCH (06:30)
[2018-03-20] MEDS ORDERED: Insulin LISPRO 300 UNITS/3 ML VIAL SQ SCH (07:30)
[2018-03-20] MEDS: Diltiazem CD (24hr) 240 MG CAPSULE PO SCH ×2 (07:43→21:49)
[2018-03-20] MEDS: Isosorbide MONOnitrate (24 HR) 60 MG TAB.ER.24H PO SCH (07:44)
[2018-03-20] MEDS: *HR* Digoxin 0.125 MG TABLET PO SCH (07:44)
[2018-03-20] MEDS: Aspirin 81 MG TAB.CHEW PO SCH (07:44)
[2018-03-20] MEDS: Cyanocobalamin (B-12) 1,000 MCG TABLET PO SCH (07:44)
[2018-03-20] MEDS: Furosemide 40 MG TABLET PO SCH ×2 (07:44→16:56)
[2018-03-20] MEDS: Insulin LISPRO 300 UNITS/3 ML VIAL SQ SCH ×7 (07:45→21:50)
[2018-03-20] MEDS: CALCIUM CARBONATE PO SCH (07:55)
[2018-03-20] MEDS: VITAMIN D3 PO SCH (07:55)
[2018-03-20] MEDS: Beclomethasone 80mcg MDI IH SCH ×2 (10:10→20:52)
--- NOTE | 2018-03-20 11:32 | Internal Med History&Physical ---
Date of Encounter: 03/20/18 Time of Encounter: 11:00 Assessment and Plan (1) Diastolic CHF, chronic Current visit: No Status: Chronic Continue home cardiac regimen including Lanoxin, Lasix, Aldactone, Imdur, and Lopressor. BN peptide slightly elevated at 170. (2) Chronic respiratory failure with hypoxia Current visit: Yes Status: Acute Continue oxygen 24/7 with Flovent and Pro Air. (3) Chronic atrial fibrillation Current visit: No Status: Chronic Continue Coumadin (4) Hypothyroidism Current visit: No Status: Chronic TSH was normal at 3.55 on 02/09/2018. Continue present dose Synthroid. Qualifiers: Hypothyroidism type: unspecified Qualified Code(s): E03.9 - Hypothyroidism, unspecified (5) Type 2 diabetes mellitus Current visit: No Status: Chronic Hemoglobin A1c was 6.6% on 02/09/2018. Continue Lantus and NovoLog with Accu- Cheks and SSI. Qualifiers: Diabetes mellitus termite control technician insulin use: with termite control technician use Diabetes mellitus complication status: with kidney complications Diabetes mellitus complication detail: with chronic kidney disease Chronic kidney disease stage: stage 3 (moderate) Qualified Code(s): E11.22 - Type 2 diabetes mellitus with diabetic chronic kidney disease; N18.3 - Chronic kidney disease, stage 3 (moderate); N18.3 - Chronic kidney disease, stage 3 (moderate); Z79.4 - longterm (current) use of insulin; Z79.4 - terminal superintendent (current) use of insulin; Z79.4 - terminal superintendent (current) use of insulin; Z79.4 - terminal superintendent (current) use of insulin (6) CKD (chronic kidney disease) stage 3, GFR 30-59 ml/min Current visit: No Status: Chronic Monitor renal indices. (7) Low vitamin D level Current visit: No Status: Acute Check vitamin D level. (8) Hypokalemia Current visit: Yes Status: Acute Increase supplemental potassium and monitor labs. (9) Hypertension Current visit: No Status: Chronic Continue present regimen and monitor blood pressure. Qualifiers: Hypertension type: essential hypertension Qualified Code(s): I10 - Essential (primary) hypertension (10) Weight loss Current visit: Yes Status: Acute Order CT of chest, abdomen, and pelvis to further evaluate. Internal Medicine - H&P: HPI Chief complaint: Dyspnea Admitted From: Emergency Dept Plans for Post Hospital Care: Home History of present illness: Ms. Nowak is a 82 year old female who came to emergency room stating she had onset of chest "heaviness" and significant dyspnea approximately 8 PM the evening of March 18 while at leisure. She reports there were "little needlesticks" chest pains lasting 1-2 seconds. She denies cough. She took a nebulizer treatment and felt better. Her symptoms returned the following morning so she came to emergency room for evaluation. She was felt to have exacerbation of COPD and was admitted to [facility] floor for ongoing care needs. Her respiratory history is significant for being a lifelong nonsmoker. She sta ambar she has asthma. She has been diagnosed with hypoxemia and uses oxygen 15/11. She reports negative ZOE workup in the past. Past Med Surg Social Fam HX - Past Medical History Medical history: atrial fibrillation, cirrhosis, CHF, COPD, diabetes, GERD, hyperlipidemia, hypertension, renal disease, thyroid disease, other Additional medical history: PACEMAKER, anemia, Vit D defiency Psychiatric history: no psych history - Past Surgical History Surgical History: cancer surgery, cataract, cholecystectomy, hysterectomy, orthopedic, other, pacemaker/AICD, sinus surgery, BELLA/BSO, other Additional surgical history: BONE SPURS REMOVED FROM BOTH HEELS, HEMORRHOIDECTOMY, scope to left knee - Social History Smoking Status: Never smoker Smokeless Tobacco Status: No Alcohol use: none Drug use: none - Family History Mother Hx Family Cardiac Disorders: Yes Hx Family Respiratory Disorders: Yes Internal Medicine - H&P: Meds Acetaminophen [Tylenol] 650 mg PO Q8H PRN 12/03/15 [History] Albuterol Sulfate [Proair Hfa] 2 puff IH Q8HR PRN 12/03/15 [History] Aspirin 81 mg PO DAILY 12/03/15 [History] Bimatoprost [Lumigan] 2.5 ml OP HS 12/03/15 [History] Calcium Carbonate/Vitamin D3 [Oyster Shell Calcium-Vit D Tab] 1 each PO DAILY 12/03/15 [History] EPINEPHrine [Epipen JR] 0.3 mg SQ DAILY PRN 12/03/15 [History] Fluticasone Propionate [Flovent Diskus] 50 mcg IH BID 12/03/15 [History] Insulin ASPART [Novolog Flexpen] 15 unit SQ TIDWM 12/03/15 [History] Insulin Glargine,Hum.rec.anlog [Lantus Solostar] 30 unit SQ HS 12/03/15 [History] Levothyroxine [Synthroid] 300 mcg PO DAILY 12/03/15 [History] Nitroglycerin [Nitrostat] 0.4 mg SL Q5-10MIN PRN 12/03/15 [History] Potassium Chloride 10 meq PO DAILY 12/03/15 [History] Diltiazem HCl [Diltiazem 24Hr Cd] 240 mg PO BID 10/29/16 [History] Ipratropium/Albuterol Neb [Duoneb] 3 ml IH Q6HR PRN 10/29/16 [History] Spironolactone [Aldactone] 25 mg PO 1200 10/29/16 [History] Cyanocobalamin (Vitamin B-12) [Vitamin B12] 1,000 mcg PO DAILY 06/09/17 [History] Warfarin [Coumadin] 5 mg PO DAILY 06/09/17 [History] Digoxin [Lanoxin] 0.125 mg PO DAILY #30 tablet 06/11/17 [Rx] Isosorbide MONOnitrate [Isosorbide Mononitrate ER] 120 mg PO DAILY #30 tab .er.24h 06/11/17 [Rx] Loratadine [Claritin] 10 mg PO DAILY PRN #0 06/11/17 [Rx] Metoprolol [Lopressor] 25 mg PO BID #0 06/11/17 [Rx] Esomeprazole Magnesium [Nexium] 40 mg PO DAILY 03/19/18 [History] Furosemide [Lasix] 80 mg PO BID 03/19/18 [History] Allergy/AdvReac Type Severity Reaction Status Date / Time clindamycin Allergy Hives Verified 01/24/17 00:29 doxycycline Allergy Hives Verified 01/24/17 00:29 Penicillins [PCN] Allergy Hives Verified 01/24/17 00:29 pravastatin Allergy Nausea Verified 01/24/17 00:29 simvastatin Allergy Nausea Verified 01/24/17 00:29 [place] Allergy Hives Verified 06/09/17 17:57 sulfamethoxazole Allergy Rash Verified 01/24/17 00:29 [From Bactrim] trimethoprim [From Bactrim] Allergy Rash Verified 01/24/17 00:29 gabapentin AdvReac Drowsy Verified 01/24/17 00:29 lovastatin AdvReac Nausea Verified 01/24/17 00:29 All Systems PM: A 10-system review of systems was performed and is negative for pertinent findings except as documented above in the HPI. Review of systems: Review of systems from her May 2017 [facility] hospitalization were reviewed and revised as below. Gen.: Her weight has decreased from 150.366 kg on 01/24/2017 to 123.675 kg now, unintentional. She states she has decreased her amount of soda and chip intake. Cardiovascular: She has history of hypertension but denies ID DVT or pulmonary embolus. She denies stress test or heart cath being done. She had a diagnosis of SSS and had pacemaker placement October 2014. Echocardiogram done October 2015 shows LVEF of 55% with indeterminate diastolic function due to atrial fibrill ation. There was reported moderately dilated atria without measurements recorded. There was [id number] TR. She has history of atrial fibrillation. Respiratory: As per history of present illness GI: She is a lifelong nondrinker but has been diagnosed with cirrhosis. She has had cholecystectomy. She has occasional GERD symptoms. She denies disorders of exocrine pancreas. : She had uterine cancer with curative BELLA/BSO several years ago. She was unaware she has chronic kidney disease stage 2-3 from review of past labs. Neurologic: She denies large distribution strokes or seizures. Endocrine: She was diagnosed DM 2 approximately 2011. She has hypothyroidism and history of hyperlipidemia but was taken off statin drugs in 2017. Hematology/oncology: She had uterine cancer with curative surgery as per above several years ago. She has anemia but denies other internal malignancies. Psychiatric: She denies anxiety depression or other mental health issues. [place] skeletal: She has DJD but denies gout or other bone joint or muscle disorders. - Constitutional Vitals: Temp Pulse Resp BP Pulse Ox 98.3 F 69 14 109/57 81 03/20/18 06:55 03/20/18 06:55 03/20/18 10:10 03/20/18 06:55 03/20/18 10:10 Exam: Gen.: She is a well-developed obese female sitting in a chair at bedside who appears in no acute distress HEENT: Head is atraumatic and normocephalic. Eyes: EOMI. There is no scleral icterus. Mouth: Mucosa is moist. Neck: Supple and nontender. There is no thyromegaly or adenopathy noted. Heart: Regular without murmurs gallops or ectopics. Chest: Pacemaker is in place in the left upper chest area Lungs: No wheezes or crackles are heard. Abdomen: Soft and nontender. Exam is limited because she is in a seated position. Extremities: She has 0 to trace pitting edema of the dorsum of the feet bilaterally. She has marked adiposity of her lower legs. She has mild DJD changes of her hands. Neurologic: Mental status: She is talkative and a good historian. Cranial nerves: Smile is symmetric. Forehead wrinkles bilaterally. Tongue protrudes midline. EOMI. Motor: There is no pronator drift. Cerebellar: Finger to nose is intact bilaterally. Skin: Warm and dry Internal Med - H&P Results - Labs CBC & Chem 7: 03/19/18 16:06 03/19/18 16:06 Labs: Short CBC 03/19/18 Range/Units 16:06 WBC 11.0 (4.3-11.1) K/mcL Hgb 11.3 L (11.5-15.4) g/dL Hct 34.2 L (35.3-44.9) % Plt Count 281 (140-400) K/mcL Neutrophils # 7.8 (1.6-8.9) K/mcL BMP 03/19/18 16:06 Sodium 137 Potassium 3.3 L Chloride 95 L Carbon Dioxide 30 H BUN 12 Creatinine 1.14 Glucose 113 H Calcium 8.8 Cardiac Enzymes 03/19/18 Range/Units 16:06 Troponin I 0.03 (< 0.04) ng/mL - Impressions ITS Impressions Chest X-Ray 03/19/18 15:52 IMPRESSION: 1. Pulmonary venous hypertension without overt congestive heart failure change. 2. Senescent pulmonary changes. 3. Calcific atherosclerosis aorta. 4. Cardiomegaly. D/ / Cody Alvarenga / Cody Alvarenga Interpreting Provider: Cody Alvarenga - VTE Reasons for not Prescribing Prophylaxis: Not indicated-Anticoagulated or INR therapeutic
[2018-03-20] MEDS ORDERED: Spironolactone 25 MG TABLET PO SCH (12:00)
[2018-03-20] MEDS ORDERED: *HR* Warfarin 5 MG TABLET PO SCH (18:00)
[2018-03-20] MEDS ORDERED: Insulin DETEMIR 100 UNIT/ML X5UNITS SQ SCH (21:00)
[2018-03-20] MEDS: Latanoprost 2.5 ML BOTTLE BOTH EYES SCH (21:51)
[2018-03-21] MEDS ORDERED: Famotidine 20 MG TABLET PO SCH (06:30)
[2018-03-21 07:22] VITALS: BP 105/63
[2018-03-21] MEDS: Insulin LISPRO 300 UNITS/3 ML VIAL SQ SCH ×2 (08:36→08:58)
[2018-03-21] MEDS: Aspirin 81 MG TAB.CHEW PO SCH (08:57)
[2018-03-21] MEDS: Furosemide 40 MG TABLET PO SCH (08:57)
[2018-03-21] MEDS: Isosorbide MONOnitrate (24 HR) 60 MG TAB.ER.24H PO SCH (08:57)
[2018-03-21] MEDS: *HR* Digoxin 0.125 MG TABLET PO SCH (08:58)
[2018-03-21] MEDS: Cyanocobalamin (B-12) 1,000 MCG TABLET PO SCH (08:58)
[2018-03-21] MEDS: VITAMIN D3 PO SCH (08:59)
[2018-03-21] MEDS: Diltiazem CD (24hr) 240 MG CAPSULE PO SCH (08:59)
[2018-03-21] MEDS: CALCIUM CARBONATE PO SCH (08:59)
[2018-03-21] MEDS: Beclomethasone 80mcg MDI IH SCH (10:07)
--- NOTE | 2018-03-21 10:13 | Discharge Summary ---
Date of Encounter: 03/21/18 Time of Encounter: 10:00 - Discharge Diagnosis (1) Diastolic CHF, chronic Priority: Primary Status: Chronic (2) Chronic respiratory failure with hypoxia Priority: Secondary Status: Acute (3) Chronic atrial fibrillation Priority: Secondary Status: Chronic (4) Hypothyroidism Priority: Secondary Status: Chronic Qualifiers: Hypothyroidism type: unspecified Qualified Code(s): E03.9 - Hypothyroidism, unspecified (5) Type 2 diabetes mellitus Priority: Secondary Status: Chronic Qualifiers: Diabetes mellitus traffic attendant insulin use: with traffic attendant use Diabetes mellitus complication status: with kidney complications Diabetes mellitus complication detail: with chronic kidney disease Chronic kidney disease stage: stage 3 (moderate) Qualified Code(s): E11.22 - Type 2 diabetes mellitus with diabetic chronic kidney disease; N18.3 - Chronic kidney disease, stage 3 (moderate); N18.3 - Chronic kidney disease, stage 3 (moderate); Z79.4 - care home (current) use of insulin; Z79.4 - care home (current) use of insulin; Z79.4 - care home (current) use of insulin; Z79.4 - child welfare assistant (current) use of insulin (6) CKD (chronic kidney disease) stage 3, GFR 30-59 ml/min Priority: Secondary Status: Chronic (7) Low vitamin D level Priority: Secondary Status: Acute (8) Hypokalemia Priority: Secondary Status: Acute (9) Hypertension Priority: Secondary Status: Chronic Qualifiers: Hypertension type: essential hypertension Qualified Code(s): I10 - Essential (primary) hypertension (10) Weight loss Priority: Secondary Status: Chronic Hospital course: Ms. Nowak is a 82 year old female who came to emergency room stating she had onset of chest "heaviness" and significant dyspnea approximately 8 PM the evening of March 18 while at leisure. She reports there were "little needlesticks" chest pains lasting 1-2 seconds. She denies cough. She took a nebulizer treatment and felt better. Her symptoms returned the following morning so she came to emergency room for evaluation. She was felt to have exacerbation of COPD and was admitted to [facility] floor for ongoing care needs. Initial orders were written by emergency room physician. I saw her on March 20 and performed the history and physical. CT of chest abdomen pelvis was done to further evaluate her dyspnea and weight loss. No acute pathology was seen. There was evidence of cirrhosis and cardiomegaly noted. There was mild prominence of the pulmonary artery. She felt improved and stable for discharge when I saw her on March 21. She will follow with her PCP Dr. Hwang within 1 week. Supplemental potassium dose was increased from 10 mEq twice a day to 20 mEq twice a day. Her PCP can monitor labs. Vitamin D level returned low at 13. Her PCP can adjust her vitamin D dose. - Time Spent with Patient Total time spent providing and/or coordinating discharge services: - Discharge Medications Prescriptions: Ondansetron ODT [Zofran ODT] 4 mg SL Q4HR PRN #12 tab.rapdis PRN Reason: Nausea Potassium Chloride 20 meq PO BIDWM #120 tab.er.prt Home Medications: Acetaminophen [Tylenol] 650 mg PO Q8H PRN 12/03/15 [History] Albuterol Sulfate [Proair Hfa] 2 puff IH Q8HR PRN 12/03/15 [History] Aspirin 81 mg PO DAILY 12/03/15 [History] Bimatoprost [Lumigan] 2.5 ml OP HS 12/03/15 [History] Calcium Carbonate/Vitamin D3 [Oyster Shell Calcium-Vit D Tab] 1 each PO DAILY 12/03/15 [History] EPINEPHrine [Epipen JR] 0.3 mg SQ DAILY PRN 12/03/15 [History] Fluticasone Propionate [Flovent Diskus] 50 mcg IH BID 12/03/15 [History] Insulin ASPART [Novolog Flexpen] 15 unit SQ TIDWM 12/03/15 [History] Insulin Glargine,Hum.rec.anlog [Lantus Solostar] 30 unit SQ HS 12/03/15 [History] Levothyroxine [Synthroid] 300 mcg PO DAILY 12/03/15 [History] Nitroglycerin [Nitrostat] 0.4 mg SL Q5-10MIN PRN 12/03/15 [History] Diltiazem HCl [Diltiazem 24Hr Cd] 240 mg PO BID 10/29/16 [History] Ipratropium/Albuterol Neb [Duoneb] 3 ml IH Q6HR PRN 10/29/16 [History] Spironolactone [Aldactone] 25 mg PO 1200 10/29/16 [History] Cyanocobalamin (Vitamin B-12) [Vitamin B12] 1,000 mcg PO DAILY 06/09/17 [History] Warfarin [Coumadin] 5 mg PO SA@1800 06/09/17 [History] Digoxin [Lanoxin] 0.125 mg PO DAILY #30 tablet 06/11/17 [Rx] Isosorbide MONOnitrate [Isosorbide Mononitrate ER] 120 mg PO DAILY #30 tab.er.24h 06/11/17 [Rx] Loratadine [Claritin] 10 mg PO DAILY PRN #0 06/11/17 [Rx] Metoprolol [Lopressor] 25 mg PO BID #0 06/11/17 [Rx] Esomeprazole Magnesium [Nexium] 40 mg PO DAILY 03/19/18 [History] Furosemide [Lasix] 80 mg PO BID 03/19/18 [History] Warfarin [Coumadin] 2.5 mg PO SUMOTUWETHFR@1800 03/20/18 [History] Ondansetron ODT [Zofran ODT] 4 mg SL Q4HR PRN #12 tab.rapdis 03/21/18 [Rx] Potassium Chloride 20 meq PO BIDWM #120 tab.er.prt 03/21/18 [Rx] Allergies/Adverse Reactions: Allergy/AdvReac Type Severity Reaction Status Date / Time clindamycin Allergy Hives Verified 01/24/17 00:29 doxycycline Allergy Hives Verified 01/24/17 00:29 Penicillins [PCN] Allergy Hives Verified 01/24/17 00:29 pravastatin Allergy Nausea Verified 01/24/17 00:29 simvastatin Allergy Nausea Verified 01/24/17 00:29 [place] Allergy Hives Verified 06/09/17 17:57 sulfamethoxazole Allergy Rash Verified 01/24/17 00:29 [From Bactrim] trimethoprim [From Bactrim] Allergy Rash Verified 01/24/17 00:29 gabapentin AdvReac Drowsy Verified 01/24/17 00:29 lovastatin AdvReac Nausea Verified 01/24/17 00:29 Date of admission: 03/19/18 18:30 Primary care physician: Cholo Hwang - Constitutional Vitals: Temp Pulse Resp BP Pulse Ox 99 F 73 15 105/63 95 03/21/18 07:16 03/21/18 07:16 03/21/18 07:16 03/21/18 07:16 03/21/18 07:16 - Patient Status Disposition: Home, Self-Care - Discharge Instructions Follow Up With: NONE,PCP [Primary Care Provider] - 1 week - Diet and Activity Activity: resume usual activities as tolerated, wear oxygen at all times Diet: advance to your usual diet - VTE Reasons for not Prescribing Prophylaxis: Not indicated-Anticoagulated or INR therapeutic
--- NOTE | 2018-03-22 13:23 | Electrocardiograph Report ---
[address] [place], [place] [address] Test Date: 2018-03-19 Pat Name: Nika Nowak Department: [id number] Room: [facility] Gender: F [employer]: [id number] : 1935 Requested By: Lory Rhoades Order Number: [id number] Reading MD: Julio César Santamaria Measurements Intervals [place] Rate: 67 P: UT: 0 QRS: 53 QRSD: 85 T: -62 QT: 358 QTc: 374 Interpretive Statements Sinus rhythm with a first degree AV block Anterolateral ST-T changes, consider ischemia Inferior ST-T changes, consider ischemia Electronically Signed On 03-22-2018 13:21:21 EST by Julio César Santamaria
[2018-03-25] MEDS ORDERED: *HR* Warfarin 5 MG TABLET PO SCH (18:00)
== END 2018-03-21 11:16 | disposition home or self-care (01) ==
LOC: INPPIK 15:25 → EMEROOPIK 15:25 → INPPIK 18:30
PROVIDERS: ADMIT Internal Medicine; ATTEND Internal Medicine